=== PATIENT | female | born 1955 | race Two or more races ===

== ENCOUNTER 2023-06-03 05:50 | Day surgery (SDC) | payer OTHER ==
[~2023-06-03] VITALS: Ht 157.5 cm; Wt 62.6 kg
[~2023-06-03 05:50] MED LIST: COZAAR100 MG PO; DAFLONEX-XL 11300 MG PO; FOSAMAX70 MG PO; LIPITOR20 MG PO; METFORMIN HCL1000 M2 PO
== END 2023-06-03 17:10 | disposition home or self-care (01) ==
LOC: CIR.AMB 05:50
PROVIDERS: ATTEND Colon & Rectal Surgery
DX: K64.2 Third degree hemorrhoids (principal); K64.4 Residual hemorrhoidal skin tags; K64.8 Other hemorrhoids; K92.1 Melena; I10 Essential (primary) hypertension; Z20.822 Contact with and (suspected) exposure to COVID-19; E78.5 Hyperlipidemia, unspecified; E11.9 Type 2 diabetes mellitus without complications

== ENCOUNTER 2023-06-12 10:11 | Emergency (ER) | payer OTHER ==
[~2023-06-12] VITALS: Ht 157.5 cm; Wt 62.1 kg
== END 2023-06-12 14:42 | disposition home or self-care (01) ==
LOC: ER 10:12
PROVIDERS: General Practice
DX: R19.7 Diarrhea, unspecified (principal); E11.9 Type 2 diabetes mellitus without complications; Z79.84 Long term (current) use of oral hypoglycemic drugs; I10 Essential (primary) hypertension; E78.00 Pure hypercholesterolemia, unspecified; K59.00 Constipation, unspecified
CPT/HCPCS: 74018; 96365; 96366; 99284; J2405; J3490; J7030